=== PATIENT | female | born 1980 | race Two or more races ===

== ENCOUNTER 2024-03-31 23:40 | Emergency (ER) | payer OTHER, SELFPAY ==
[2024-03-31 23:44] VITALS: BP 129/85
[2024-03-31 23:55] VITALS: BP 122/71
[2024-03-31 23:56] VITALS: BMI 25.6
[2024-04-01] VITALS (8 sets, daily range): BP systolic 84–110; BP diastolic 45–73
--- NOTE | 2024-04-01 00:03 | ED.GENMED ---
History of Present Illness
<RAMY Ross - Last Filed: 04/01/24 05:13>
General
Chief Complaint: Abdominal Pain
Source: patient
Exam Limitations: none
Time Seen by Provider: 03/31/24 23:51
Nursing documentation reviewed up to this point in time: agreed with
History of Present Illness
History of Present Illness:
43 year old female presents for evaluation of abdominal pain. Pt endorses mild generalized abdominal cramping that began approximately 2 hours ago while she was at work. She states that since this time the pain has worsened, and is now localized to
her lower abdomen, specifically the LLQ. Pain is currently 7/10 and is worsened by movement. Pt also admits to associated nausea, but denies vomiting. Pt has not taken any medications for her sx. Pt has a history of diverticulitis with
approximately 3 past flares reported, and believes that her current sx are due to a flare. Pt adds that her flares have historically been triggered by food.Her last meal was at approximately 12:00pm on 03/31. Pt had a normal bowel movement this
morning with no blood in the stool, but notes that she tried to have another bowel movement during the onset of her sx and was unable to move her bowels. She was previously followed by GI at [facility] for diverticulitis, but pt notes she has not
been seen in approximately 2 years. No fever, chills, weight loss, fatigue, diarrhea, dysuria, flank pain, or rash reported. LMP 2 months ago per pt.
Past History
<RAMY Ross - Last Filed: 04/01/24 05:13>
Past History
ED Past Medical History: Asthma and Other (Diverticulitis)
ED Past Surgical History: None
Social History
Tobacco: Non-smoker
Alcohol: None
Personal: Single
Living: with family
Employment: Employed
Review of Systems
<RAMY Ross - Last Filed: 04/01/24 05:13>
Review of Systems
Allergies reviewed?: Yes
Constitutional: Reports no symptoms
EENT: Reports no symptoms
Respiratory: Reports no symptoms
Cardiac: Reports no symptoms
ABD/GI: Reports abdominal pain and nausea
: Reports no symptoms
Musculoskeletal: Reports no symptoms
Skin: Reports no symptoms
Neurological: Reports no symptoms
Endocrine: Reports no symptoms
Hematologic/Lymphatic: Reports no symptoms
Psychiatric: Reports no symptoms
Phy Exam
<RAMY Ross - Last Filed: 04/01/24 05:13>
General Physical Exam
General Presentation: mild distress
General age: appears stated age
General Skin: warm
General Habitus: normal
General Mental: alert
General Hydration: appears well hydrated
Cardiovascular Exam
Cardiovascular Exam: regular rate/rhythm and no murmur
Pulmonary Exam
Pulmonary Exam: lungs clear and no respiratory distress
Gastrointestinal Exam
Gastrointestinal Exam: normal bowel sounds and no cva tenderness
Palpation: left upper quadrant: Mild tenderness, left lower quadrant: Moderate tenderness, right upper quadrant: Mild tenderness and right lower quadrant: Moderate tenderness
Neurological Exam
Neurological Exam: alert and oriented x3
Skin Exam
Skin Exam: normal color, warm/dry and no rash
Course
<ST CodyAL - Last Filed: 04/01/24 05:13>
Orders/Labs/Results
Orders:
Orders
04/01/24 00:06
Complete Blood Count/With Diff Urgent
Comprehensive Metabolic Panel Urgent
HCG, Serum Qualitative Screen Urgent
Comment: ADD ON
Lipase Urgent
04/01/24 00:43
Add On- LAB Urgent
Tests Added?: serum qual HCG
CT Abd/pelvis W Iv Cont Urgent
Comment:
Reason For Exam: gne lower abd pain x 1 day-hx dvertic
04/01/24 00:44
0.9% Sodium Chloride 1000 ml [Nss] 1,000 ml IV BOLUS
Ketorolac [Toradol] 30 mg IV NOW STA
Ondansetron Injectable [Zofran] 4 mg IV NOW STA
04/01/24 01:42
Urinalysis Reflex To Culture Urgent
Date Specimen was Collected: 04/01/24
Time Specimen was Collected: 01:02
Urine Microscopic Reflex Cult Urgent
Urine Culture Urgent
SAAD Source: U
Specimen Description:
Date Specimen was Collected: 04/01/24
Time Specimen was Collected: 01:02
04/01/24 02:53
Acetaminophen 1000MG/100Ml [Ofirmev] 1,000 mg in 100 ml IV ONCE
Acetaminophen IV Indication:: ED Narcotic Naive Pt-ONCE
LevoFLOXacin 500 MG/100 ML [Levaquin] 500 mg in 100 ml IV NOW
MetroNIDAZOLE 500 MG/100 ML [Flagyl 500 mg] 100 ml IV NOW
Abnormal Lab Results
04/01/24 04/01/24
00:06 01:42
WBC 14.8 H 10^3/uL
(4.8-10.8)
MCH 31.8 H pg
(27.0-31.0)
Abs Immat Gran (auto) 0.3 H 10^3/uL
(0-0.05)
Absolute Neuts (auto) 12.5 H 10^3/uL
(1.4-6.5)
Absolute Lymphs (auto) 1.1 L 10^3/uL
(1.2-3.4)
Immature Gran % 1.8 H %
(0-0.5)
Neutrophils % 84.4 H %
(42.2-75.2)
Lymphocytes % 7.7 L %
(20.5-51.1)
Urine Ketones 2+ A
(Negative)
Leukocyte Esterase Rfl 1+ A
(Negative)
Urine WBC (Reflex) 40-50 A /HPF
(0-5)
Urine Bacteria (Reflex) Many A
(Negative)
04/01/24 00:06
04/01/24 00:06
Vital Signs
Initial and Last Documented VS:
Initial Vital Signs
Temp Pulse Resp BP Pulse Ox
98.4 F 77 20 129/85 100
03/31/24 23:44 03/31/24 23:44 03/31/24 23:44 03/31/24 23:44 03/31/24 23:44
Last Documented Vital Signs
Temp Pulse Resp BP Pulse Ox
98.0 F 69 18 90/57 96
04/01/24 03:10 04/01/24 03:10 04/01/24 03:10 04/01/24 04:00 04/01/24 04:45
<Ashley Pemberton, DO - Last Filed: 04/01/24 03:31>
Orders/Labs/Results
Orders:
Orders
04/01/24 00:06
Complete Blood Count/With Diff Urgent
Comprehensive Metabolic Panel Urgent
HCG, Serum Qualitative Screen Urgent
Comment: ADD ON
Lipase Urgent
04/01/24 00:43
Add On- LAB Urgent
Tests Added?: serum qual HCG
CT Abd/pelvis W Iv Cont Urgent
Comment:
Reason For Exam: gne lower abd pain x 1 day-hx dvertic
04/01/24 00:44
0.9% Sodium Chloride 1000 ml [Nss] 1,000 ml IV BOLUS
Ketorolac [Toradol] 30 mg IV NOW STA
Ondansetron Injectable [Zofran] 4 mg IV NOW STA
04/01/24 01:42
Urinalysis Reflex To Culture Urgent
Date Specimen was Collected: 04/01/24
Time Specimen was Collected: 01:02
Urine Microscopic Reflex Cult Urgent
Urine Culture Urgent
SAAD Source: U
Specimen Description:
Date Specimen was Collected: 04/01/24
Time Specimen was Collected: 01:02
04/01/24 02:53
Acetaminophen 1000MG/100Ml [Ofirmev] 1,000 mg in 100 ml IV ONCE
Acetaminophen IV Indication:: ED Narcotic Naive Pt-ONCE
LevoFLOXacin 500 MG/100 ML [Levaquin] 500 mg in 100 ml IV NOW
MetroNIDAZOLE 500 MG/100 ML [Flagyl 500 mg] 100 ml IV NOW
Abnormal Lab Results
04/01/24 04/01/24
00:06 01:42
WBC 14.8 H 10^3/uL
(4.8-10.8)
MCH 31.8 H pg
(27.0-31.0)
Abs Immat Gran (auto) 0.3 H 10^3/uL
(0-0.05)
Absolute Neuts (auto) 12.5 H 10^3/uL
(1.4-6.5)
Absolute Lymphs (auto) 1.1 L 10^3/uL
(1.2-3.4)
Immature Gran % 1.8 H %
(0-0.5)
Neutrophils % 84.4 H %
(42.2-75.2)
Lymphocytes % 7.7 L %
(20.5-51.1)
Urine Ketones 2+ A
(Negative)
Leukocyte Esterase Rfl 1+ A
(Negative)
Urine WBC (Reflex) 40-50 A /HPF
(0-5)
Urine Bacteria (Reflex) Many A
(Negative)
04/01/24 00:06
04/01/24 00:06
Vital Signs
Initial and Last Documented VS:
Initial Vital Signs
Temp Pulse Resp BP Pulse Ox
98.4 F 77 20 129/85 100
03/31/24 23:44 03/31/24 23:44 03/31/24 23:44 03/31/24 23:44 03/31/24 23:44
Last Documented Vital Signs
Temp Pulse Resp BP Pulse Ox
98.0 F 69 18 90/57 96
04/01/24 03:10 04/01/24 03:10 04/01/24 03:10 04/01/24 04:00 04/01/24 04:45
<RAMY Ross - Last Filed: 04/01/24 05:13>
MDM/Problems Addressed
Differential Diagnosis Includes:
Diverticulitis, cholecystitis, pancreatitis, appendicitis
<RAMY Ross - Last Filed: 04/01/24 05:13>
*Critical Care Note
Total Time (30-74mins, 75-104mins- exclusive of procedures): Not Applicable
<Ashley Pemberton DO - Last Filed: 04/01/24 03:31>
*Radiology
Radiology exam reviewed: radiology read reviewed
*Pulse Oximetry
Patient hypoxic: no
*Critical Care Note
Total Time (30-74mins, 75-104mins- exclusive of procedures): Not Applicable
<RAMY Ross - Last Filed: 04/01/24 05:13>
Update Note
Update Note:
04/01/2024, 02:22 - CT A/P showing acute sigmoid diverticulitis. No perforation or abscess. Normal appendix. No bowel obstruction. No free air.
ED Attending Note
<RAMY Ross - Last Filed: 04/01/24 05:13>
-
Portions of this chart may have been created with voice recognition software.� Occasional wrong word or��sound alike� substitutions may have occurred due to the inherent limitations of voice recognition software.
<Ashley Pemberton, DO - Last Filed: 04/01/24 03:31>
ED Attending Note
Patient seen and examined by attending physician: Yes
I performed the substantive portion of visit, reviewed & personally made and approve the management plan that is documented in note by myself or GAEL.: Yes
ED Attending Note:
This is a 43-year-old woman who has prior history of diverticulitis with the last episode uncomplicated diverticulitis July 2023 and prior to that April 2023. Successfully treated on both occasions with outpatient course of Levaquin/Flagyl.
Previously followed with GI at [facility]. She presents with generalized lower abdominal pain that began mildly this evening, has gotten progressively worse over the past several hours, no improvement after moving her bowels, no improvement after
urinating. She admits to intermittent chills tonight, unsure if she has been running a fever.
Abdominal pain feels similar to previous episodes of diverticulitis. She denies diarrhea or constipation, denies dysuria and urgency and or hematuria, denies back pain or flank pain.
Last menstrual period 2 months ago, she states her menses have been sporadic and irregular which she attributes to perimenopausal state. She denies risk of .
She has not taken anything for pain.
She takes no medicines on a daily basis.
No prior abdominal surgeries.
She admits to mild nausea tonight but denies vomiting. Appetite has been good.
She has driven herself to the ED.
GENERAL: 43-year-old woman appears her stated age, awake and alert, appears in mild distress related to pain. Moderately soft-spoken. Afebrile.
EYE: pupils equal and round. Anicteric
NECK: Supple, nontender, no meningismus, no significant adenopathy.
ENT: oral mucosa is moist. No rhinorrhea.
CARDIAC: Regular rate and rhythm. no murmur.
LUNGS: Clear breath sounds bilaterally, no acute respiratory distress, no wheezes/rales/rhonchi
ABDOMEN: Soft, nondistended, moderate tenderness left lower quadrant, suprapubic as well as significant tenderness right lower quadrant with mild guarding of right lower quadrant, no rigidity nor rebound, no cvat. normoactive BS.
NEUROLOGICAL: Alert and oriented x3, no focal neuro deficits. Gait is steady.
SKIN: Warm and dry, normal color, skin intact. No rash.
MUSCULOSKELETAL: No C/C/E. peripheral pulses are full and equal b/l. No palpable tenderness.
PSYCH: Normal and appropriate interaction.
Concern for recurrent diverticulitis, other considerations acute appendicitis, ovarian cyst, less likely UTI.
Labs thus far reveal moderately elevated white blood cell count of 14.8. Chemistries are unremarkable. Will add hCG to blood in the lab. Will check urinalysis.
Will plan for CT abdomen pelvis with IV contrast.
04/01/2024 0300 AM
CAT scan shows acute sigmoid diverticulitis without evidence of abscess nor free air. Normal appendix.
Will initiate a course of Levaquin/Flagyl which patient has done quite well with previously.
Moderate improvement in pain after IV Toradol. Will give an IV dose of Tylenol as patient has driven herself to the ED. Small prescription for Vicodin has been provided at discharge.
Recommend she limit her diet to clear liquids over the next 3 days, slowly advance as tolerated.
Discussed importance of follow-up with her GI specialist at [facility] for recheck.
Return precautions discussed.
Discharge Plan
Departure
Patient Disposition: Home (Routine Discharge)
Date of Disposition: 04/01/24
Time of Disposition: 03:24
Patient with high blood pressure during this ER visit?: No
Condition: Good
Discharge Problem:
Acute sigmoid diverticulitis
Instructions: Clear Liquid Diet, Diverticulitis (DC)
Prescriptions:
New
levofloxacin 500 mg tablet
500 mg PO DAILY 9 Days Qty: 9 0RF
metronidazole 500 mg tablet
500 mg PO TID Qty: 30 0RF
hydrocodone-acetaminophen 5-300 mg tablet
1 tab PO Q8H PRN (Reason: Pain) Qty: 8 0RF
Referrals:
Jin Pemberton MD [Family Provider] -
Activity Restrictions/Additional Instructions:
Over the next 3 days, limit your diet to clear liquids only. Thereafter advance as tolerated to soft bland foods.
Follow-up with your credit risk officer for recheck.
Interventions
Interventions:
*Risk Screen - Suicide Last Done: 03/31/24 23:44
*General Assessment Last Done: 03/31/24 23:56
*Neglect/Abuse Screening Last Done: 03/31/24 23:44
ED- Fall Risk Assessment Last Done: 03/31/24 23:56
*ED COVID-19 Vaccine History Last Done: 03/31/24 23:56
WE-Mvcecd-Hfjkhgltad Assessment Last Done: 03/31/24 23:56
Discharge Date and Time
Print Language: TURKISH
[2024-04-01 00:31] LABS: % Basophils 0.3 % (0-2); % Eosinophils 3.3 % (0-6); % Immature Granulocytes 1.8 % (0-0.5); % Lymphocytes 7.7 % (20.5-51.1); % Monocytes 2.5 % (1.7-9.3); % Neutrophils 84.4 % (42.2-75.2); Absolute Eosinophils 0.5 10^3/uL (0-0.7); Absolute Immature Granulocytes 0.3 10^3/uL (0-0.05); Absolute Lymphocytes 1.1 10^3/uL (1.2-3.4); Absolute Monocytes 0.4 10^3/uL (0.1-0.6); Absolute Neutrophils 12.5 10^3/uL (1.4-6.5); Hematocrit 42.9 % (37.0-47.0); Hemoglobin 14.7 g/dL (12.0-16.0); Mean Corp Hgb Conc. 34.3 g/dL (33.0-37.0); Mean Corpuscular Hgb 31.8 pg (27.0-31.0); Mean Corpuscular Volume 92.9 fL (81.0-99.0); Mean Platelet Volume 9.4 fL (7.4-10.4); Nucleated Red Blood Cells % 0 %; Platelet Count 297 10^3/uL (130-400); Red Blood Cell Count 4.62 10^6/uL (4.20-5.40); Red Cell Dist. Width 12.8 % (11.5-14.5); White Blood Cell Count 14.8 10^3/uL (4.8-10.8)
[2024-04-01 00:40] LABS: ALT (SGPT) 14 U/L (0-35); AST (SGOT) 29 U/L (14-36); Albumin 4.7 g/dl (3.5-5.0); Alkaline Phosphatase 70 U/L (38-126); Blood Urea Nitrogen 13 mg/dl (7-17); Calcium 9.3 mg/dl (8.4-10.2); Carbon Dioxide 27 mmol/L (22-30); Chloride 102 mmol/L (98-107); Estimated Creatinine Clearance 88 ml/min; Glucose 97 mg/dl (70-99); Lipase 45 U/L (23-300); Potassium 3.8 mmol/L (3.5-5.1); Sodium 138 mmol/L (135-145); Total Bilirubin 1.2 mg/dl (0.2-1.3); Total Protein 7.5 g/dl (6.3-8.2); eGFR > 60.00
[2024-04-01] MEDS: NSS 1000 IV (00:48)
[2024-04-01] MEDS: TORADOL 30 MG IV (00:49)
[2024-04-01] MEDS: ZOFRAN 4 MG IV (00:50)
[2024-04-01 01:01] LABS: HCG, Serum Qualitative Screen Negative
[2024-04-01 02:01] LABS: Urine Albumin Negative (Neg - Trace); Urine Bilirubin Negative (Negative); Urine Color Yellow; Urine Glucose Negative (Negative); Urine Ketone 2+ (Negative); Urine Leukocyte 1+ (Negative); Urine Nitrite Negative (Negative); Urine Occult Blood Negative (Negative); Urine Urobilinogen Negative (Neg - 1+)
[2024-04-01 02:09] LABS: Urine Character Slightly Cloudy (Clear)
[2024-04-01 02:26] LABS: Urine Bacteria Many (Negative); Urine Mucus Moderate; Urine Squamous Cell >30 /LPF (Few)
[2024-04-01 02:27] LABS: Urine Red Blood Cell 0-2 /HPF (0-2); Urine White Cell 40-50 /HPF (0-5)
[2024-04-01] MEDS: OFIRMEV 100 IV (03:03)
[2024-04-01] MEDS: LEVAQUIN 100 IV (03:05)
[2024-04-01] MEDS: FLAGYL 500 MG 100 IV (03:05)
== END 2024-04-01 06:46 | disposition home or self-care (01) ==
LOC: EMR 23:40
PROVIDERS: EMERGENCY PHYSICIAN Emergency Medicine; FAMILY PHYSICIAN Internal Medicine
DX: K57.32 Diverticulitis of large intestine without perforation or abscess without bleeding (principal)
CPT/HCPCS: 99284; 96365; 96367; 96375 ×3; 96361; 96366; 74177; 80053; 81003; 81015; 83690; 84703; 85025; 87086; Q9967

== ENCOUNTER 2024-04-02 19:14 | Inpatient (IN) | payer OTHER, SELFPAY ==
[2024-04-02] VITALS (7 sets, daily range): BP systolic 102–128; BP diastolic 60–80; BMI 28.0; BMI 26.9
--- NOTE | 2024-04-02 15:11 | ED.GENMED ---
History of Present Illness
<Sharyn Garcia PA-C - Last Filed: 04/02/24 18:36>
General
Chief Complaint: Abdominal Pain
Source: patient
Exam Limitations: none
Time Seen by Provider: 04/02/24 15:09
Nursing documentation reviewed up to this point in time: agreed with
History of Present Illness
History of Present Illness:
Patient is a 43-year-old female presenting to the emergency department for further evaluation of persistent abdominal pain in setting of known diverticulitis. Patient was seen in the emergency department here about 36 hours ago for lower abdominal
pain and associated nausea. Patient was diagnosed with acute sigmoid diverticulitis at that time via CT scan. She was discharged on oral ciprofloxacin/Flagyl. Patient states that she has taken her antibiotic over the past 1 to 2 days and has not
noticed any improvement. Patient states she is experience significant abdominal discomfort that is not resolved with p.o. Vicodin that was prescribed to her upon discharge. Patient states the pain is not necessarily worse than it was but has not
improved.
Patient reports some nausea but has had no episodes of vomiting. Patient denies any fevers, some subjective chills. Patient has been adhering to a clear liquid diet since discharge
Patient has had at least 3 flares of diverticulitis in the past 1 which required IV antibiotics.
She is followed with GI at [facility] in the past.
Past History
<Sharyn Garcia PA-C - Last Filed: 04/02/24 18:36>
Past History
ED Past Medical History: Asthma and Other (Diverticulitis)
ED Past Surgical History: None
Social History
Tobacco: Non-smoker
Alcohol: None
Personal: Single
Living: with family
Employment: Employed
Review of Systems
<Sharyn Garcia PA-C - Last Filed: 04/02/24 18:36>
Review of Systems
Allergies reviewed?: Yes
All Other Systems: ROS reviewed and negative except as documented in HPI and ROS
Phy Exam
<Sharyn Garcia PA-C - Last Filed: 04/02/24 18:36>
Physical Exam
Physical Exam:
Vitals: Patient's vital signs are stable. Afebrile
General: Patient is well appearing, no acute distress. Nontoxic-appearing
Skin: Warm and dry, no rashes or lesions
Head: Normocephalic, atraumatic
Eyes: Sclera nonicteric. EOMs intact. No nystagmus.
Throat: Protecting airway
Neck: Normal ROM, no cervical spine tenderness, no meningismus
Cardiac: Regular rate and rhythm, no murmurs.
Pulm: Normal respiratory effort, no wheezes, rales, rhonchi heard on exam.
Abdomen: Abdomen soft. Mild left lower quadrant abdominal tenderness without rebound tenderness or guarding. No CVA tenderness
Extremities: No evidence of cyanosis or edema. Great distal pulses
Neuro: AAOx3. CN II-XII intact. No focal neurologic deficits.
Psychiatric: Normal affect.
Course
<Sharyn Garcia PA-C - Last Filed: 04/02/24 18:36>
Orders/Labs/Results
Orders:
Orders
04/02/24 16:19
0.9% Sodium Chloride 1000 ml [Nss] 1,000 ml IV BOLUS
Ketorolac [Toradol] 15 mg IV NOW STA
04/02/24 17:27
Morphine Sulfate 4 mg IV NOW STA
04/02/24 17:33
Basic Metabolic Panel Urgent
Complete Blood Count/With Diff Urgent
HCG, Serum Qualitative Screen Urgent
Comment: ADD ON
04/02/24 17:53
Piperacillin/Tazo 3.375 Gram [Zosyn] 3.375 gram in 50 ml IV NOW
04/02/24 18:00
Add On- LAB Urgent
Tests Added?: Serum hcg qual
Abnormal Lab Results
04/02/24
17:33
WBC 13.5 H 10^3/uL
(4.8-10.8)
RBC 3.75 L 10^6/uL
(4.20-5.40)
Hct 35.6 L %
(37.0-47.0)
MCH 32.0 H pg
(27.0-31.0)
Abs Immat Gran (auto) 0.1 H 10^3/uL
(0-0.05)
Absolute Neuts (auto) 11.3 H 10^3/uL
(1.4-6.5)
Neutrophils % 84.1 H %
(42.2-75.2)
Lymphocytes % 9.4 L %
(20.5-51.1)
BUN 6 L mg/dl
(7-17)
Calcium 8.2 L mg/dl
(8.4-10.2)
04/02/24 17:33
04/02/24 17:33
Vital Signs
Initial and Last Documented VS:
Initial Vital Signs
Temp Pulse Resp BP Pulse Ox
98.1 F 80 16 127/80 98
04/02/24 15:02 04/02/24 15:02 04/02/24 15:02 04/02/24 15:02 04/02/24 15:02
Last Documented Vital Signs
Temp Pulse Resp BP Pulse Ox
98.1 F 62 16 120/75 99
04/02/24 15:02 04/02/24 16:43 04/02/24 15:02 04/02/24 16:43 04/02/24 16:43
<Jin Armstrong DO - Last Filed: 04/02/24 16:52>
Orders/Labs/Results
Orders:
Orders
04/02/24 16:19
0.9% Sodium Chloride 1000 ml [Nss] 1,000 ml IV BOLUS
Ketorolac [Toradol] 15 mg IV NOW STA
04/02/24 17:27
Morphine Sulfate 4 mg IV NOW STA
04/02/24 17:33
Basic Metabolic Panel Urgent
Complete Blood Count/With Diff Urgent
HCG, Serum Qualitative Screen Urgent
Comment: ADD ON
04/02/24 17:53
Piperacillin/Tazo 3.375 Gram [Zosyn] 3.375 gram in 50 ml IV NOW
04/02/24 18:00
Add On- LAB Urgent
Tests Added?: Serum hcg qual
Abnormal Lab Results
04/02/24
17:33
WBC 13.5 H 10^3/uL
(4.8-10.8)
RBC 3.75 L 10^6/uL
(4.20-5.40)
Hct 35.6 L %
(37.0-47.0)
MCH 32.0 H pg
(27.0-31.0)
Abs Immat Gran (auto) 0.1 H 10^3/uL
(0-0.05)
Absolute Neuts (auto) 11.3 H 10^3/uL
(1.4-6.5)
Neutrophils % 84.1 H %
(42.2-75.2)
Lymphocytes % 9.4 L %
(20.5-51.1)
BUN 6 L mg/dl
(7-17)
Calcium 8.2 L mg/dl
(8.4-10.2)
04/02/24 17:33
04/02/24 17:33
Vital Signs
Initial and Last Documented VS:
Initial Vital Signs
Temp Pulse Resp BP Pulse Ox
98.1 F 80 16 127/80 98
04/02/24 15:02 04/02/24 15:02 04/02/24 15:02 04/02/24 15:02 04/02/24 15:02
Last Documented Vital Signs
Temp Pulse Resp BP Pulse Ox
98.1 F 62 16 120/75 99
04/02/24 15:02 04/02/24 16:43 04/02/24 15:02 04/02/24 16:43 04/02/24 16:43
<Sharyn Garcia PA-C - Last Filed: 04/02/24 18:36>
MDM/Problems Addressed
Differential Diagnosis Includes:
Not limited to: Diverticulitis, intractable pain, complicated diverticulitis
MDM/Problems Addressed:
43-year-old female presenting with intractable abdominal pain in known setting of acute diverticulitis currently on oral antibiotics. Seen in ED yesterday wound specialist where CT scan showed acute sigmoid diverticulitis and patient was discharged
with p.o. Cipro/Flagyl. Patient presents with persistent pain not controlled with p.o. Vicodin. No fevers or chills. No vomiting. Vital signs stable on arrival, afebrile. Physical exam as above. Patient is nontoxic-appearing. She does have
mild abdominal tenderness in upper abdomen and some moderate tenderness in left lower quadrant. There is no rebound tenderness or guarding. There are no peritoneal signs. Heart regular rate and rhythm. Lungs clear bilaterally. Great distal
pulses. Will give IV fluids, attempt analgesia here. Will closely monitor and reassess
Into reassess patient bilaterally IV Toradol. Patient still reporting discomfort. Will give 4 mg IV morphine.
Given patient has only been on oral antibiotics for 24 hours�would not consider this a treatment failure. Although will admit patient for pain management/IV antibiotics given significant level of discomfort and requiring IV narcotic medication.
Will check basic labs. Will start Zosyn.
Labs reviewed. White count of 13.5 which is mildly decreased from 14.8 yesterday. Otherwise no clinically significant abnormalities. Discussed with hospitalist�patient was accepted to hospitalist service. Patient seen along attending physician.
Chronic conditions affecting care:
Diverticulitis
Acute Exacerbation and/or Progression of Chronic Illness:
Acute diverticulitis
<Sharyn Garcia PA-C - Last Filed: 04/02/24 18:36>
*Pulse Oximetry
Patient hypoxic: no
*EKG
Interpreted by ED Provider?: NA
*Slip Cover Sewer Interpretation
Rate: Slip Cover Sewer- N/A
*Critical Care Note
Total Time (30-74mins, 75-104mins- exclusive of procedures): Not Applicable
<Sharyn Garcia PA-C - Last Filed: 04/02/24 18:36>
Patient Management
Discussion with other providers: Hospitalist
Escalation/DeEscalation of care consider admission/obs:
Admit for pain management
ED Attending Note
<Sharyn Garcia PA-C - Last Filed: 04/02/24 18:36>
-
Portions of this chart may have been created with voice recognition software.� Occasional wrong word or��sound alike� substitutions may have occurred due to the inherent limitations of voice recognition software.
<Jin Armstrong, - Last Filed: 04/02/24 16:52>
ED Attending Note
Patient seen and examined by attending physician: Yes
I performed the substantive portion of visit, reviewed & personally made and approve the management plan that is documented in note by myself or GAEL.: Yes
ED Attending Note:
I agree with Sharyn's note
Patient complaining of continued pain in her lower abdomen despite being on antibiotics for 24 hours. Patient was seen here in the emergency room approximate 24 hours ago and diagnosed with diverticulitis based on CAT scan. She was started on oral
antibiotics, Cipro and Flagyl. She states she does not feel any better. Patient has had diverticulitis in the past and when she has had antibiotics started she typically believes she feels better quickly. She is concerned that the pain continues
and she states the pain is not tolerable even with Vicodin. Patient denies nausea vomiting. No known fever
Abdomen: Mildly tender in the upper abdomen and more moderate tenderness in the lower abdomen, no rebound.
IVF/analgesia here, admit if not feeling better for pain control and iv abx
Discharge Plan
Departure
Patient Disposition: Admit
Date of Disposition: 04/02/24
Time of Disposition: 17:53
Presentation/result/management discussed w/ accepting MD/DO: Hospitalist
Discharge Problem:
Acute diverticulitis, Intractable abdominal pain
Prescriptions:
No Action
levofloxacin 500 mg tablet
500 mg PO DAILY 9 Days Qty: 9 0RF
metronidazole 500 mg tablet
500 mg PO TID Qty: 30 0RF
hydrocodone-acetaminophen 5-300 mg tablet
1 tab PO Q8H PRN (Reason: Pain) Qty: 8 0RF
Advair
1 puff inhalation R DAILY
Referrals:
NONE,* [Active] -
Interventions
Interventions:
*Risk Screen - Suicide Last Done: 04/02/24 16:43
*General Assessment Last Done: 04/02/24 16:43
*Neglect/Abuse Screening Last Done: 04/02/24 16:43
*ED COVID-19 Vaccine History Last Done: 04/02/24 16:43
MZ-Efahgg-Upqekzjnwc Assessment Last Done: 04/02/24 16:40
Discharge Date and Time
Print Language: OCCITAN
[2024-04-02] MEDS: TORADOL 15 MG IV (16:39)
[2024-04-02] MEDS: NSS 1000 IV (16:39)
[2024-04-02] MEDS: MORPHINE SULFATE 4 MG IV (17:34)
[2024-04-02 17:51] LABS: % Basophils 0.2 % (0-2); % Eosinophils 1.3 % (0-6); % Immature Granulocytes 0.5 % (0-0.5); % Lymphocytes 9.4 % (20.5-51.1); % Monocytes 4.5 % (1.7-9.3); % Neutrophils 84.1 % (42.2-75.2); Absolute Eosinophils 0.2 10^3/uL (0-0.7); Absolute Immature Granulocytes 0.1 10^3/uL (0-0.05); Absolute Lymphocytes 1.3 10^3/uL (1.2-3.4); Absolute Monocytes 0.6 10^3/uL (0.1-0.6); Absolute Neutrophils 11.3 10^3/uL (1.4-6.5); Hematocrit 35.6 % (37.0-47.0); Mean Corp Hgb Conc. 33.7 g/dL (33.0-37.0); Mean Corpuscular Volume 94.9 fL (81.0-99.0); Mean Platelet Volume 9.5 fL (7.4-10.4); Nucleated Red Blood Cells % 0 %; Platelet Count 219 10^3/uL (130-400); Red Blood Cell Count 3.75 10^6/uL (4.20-5.40); Red Cell Dist. Width 12.9 % (11.5-14.5); White Blood Cell Count 13.5 10^3/uL (4.8-10.8)
[2024-04-02 18:14] LABS: Blood Urea Nitrogen 6 mg/dl (7-17); Calcium 8.2 mg/dl (8.4-10.2); Carbon Dioxide 22 mmol/L (22-30); Chloride 106 mmol/L (98-107); Estimated Creatinine Clearance 112 ml/min; Glucose 73 mg/dl (70-99); Potassium 3.6 mmol/L (3.5-5.1); Sodium 137 mmol/L (135-145); eGFR > 60.00
[2024-04-02 18:17] LABS: HCG, Serum Qualitative Screen Negative
[2024-04-02] MEDS: ZOSYN 50 IV (18:30)
--- NOTE | 2024-04-02 18:41 | HPS.HSE ---
Addendum entered and electronically signed by Amaya Jalloh MD 04/02/24 18:55:
I saw and examined the patient.
The PUBLIC HEALTH VETERINARIAN or PA's note was reviewed and I agree with the note.
Comment:
43 years old female presented with abdominal pain. She was recently diagnosed with diverticulitis but felt oral antibiotic did not help. She denied fever or vomiting. She reported that she had diverticulitis 2 times before this admission.
GEN: No acute distress, conversant, pleasant
HEENT: anicteric, extraocular movements intact, clear oropharynx without exudates
CV: normal S1/S2, no murmur, rub or gallop
RESP: clear to auscultation bilaterally
GI: soft, not distended, tender to palpation.
EXT: warm, well perfused, no edema bilaterally
NEURO: AAOx3, non-focal
Psych: calm
Assessment and plan:
# Acute diverticulitis
Recurrent issue. Status post colonoscopy 3 years ago with positive finding of polyps/diverticulitis per patient. She had it done at [place]
Admit the patient to the hospital
Start the patient on IV antibiotic
IV pain medication, IV antiemetic
Tylenol for fever
Repeat CAT scan to rule out worsening diverticulitis/abscess formation
Consult surgery and GI doctor. Patient would like to continue with doctors locally
# Asthma, no acute exacerbation
No wheezes on exam.
-Continue Advair
# Leukocytosis, will do blood culture.
#DVT prophylaxis
Total time spent to see the patient, examine the patient on the floor, review data and lab results, discuss treatment plan with patient, ER doctor, nursing staff around 75 minutes
Original Note:
Family Physician
-
Family Physician: iJn Pemberton
Chief Complaint
-
Abdominal Pain
History of Present Illness
Patient is a 43 y/o female with a PMH of asthma and diverticulitis who presents to the ED for worsening abdominal pain. She was recently seen Saturday 03/31 for LLQ abdominal pain and nausea. She was diagnosed with acute sigmoid diverticulitis and
discharged on PO levofloxacin and Flagyl. She states she took two days worth of antibiotics. Even with the antibiotics and Vicodin for her pain seems to be worsening. The pain radiates to her back and she describes it as feeling like 'labor pains.'
She has also experienced nausea and chills be denies vomiting or fever. She reports poor oral intake since Monday. She reports three episode of diverticulitis in the past with most recent being in July 2023.
Medical History
Past Medical History
Past Medical History: Reports Other
Additional Past Medical History:
Asthma
Past Surgical History: Reports Other
Additional Past Surgical History:
[place] Teeth
Social History
Tobacco: Vaping (Occasionally)
Alcohol: None
Family History
Family History: Not pertinent
Allergies / Home Medications
Allergies reflects when Allergies were last updated in [facility].
Home Medications with original date entered in [facility]
Allergy/Medication List:
Allergies
Allergy/AdvReac Type Severity Reaction Status Date / Time
No Known Allergies Allergy Verified 03/31/24 23:43
Home Medications
hydrocodone 5 mg-acetaminophen 300 mg tablet 1 tab PO Q8H PRN Pain #8 tabs 04/01/24
levofloxacin 500 mg tablet 500 mg PO DAILY 9 days #9 tabs 04/01/24
metronidazole 500 mg tablet 500 mg PO TID #30 tabs 04/01/24
Advair 1 puff inhalation R DAILY 04/02/24
Review of Systems
-
A 12 point ROS was completed and negative except as noted: Yes
Constitutional: Reports Chills
Respiratory: Denies Cough or Trouble Breathing
Cardiac: Denies Chest Pain or Palpitations
Abdomen/GI: Reports See HPI
Physical Exam
Vital Signs
Vital Signs
Temp Pulse Resp BP Pulse Ox
98.1 F 62 16 120/75 99
04/02/24 15:02 04/02/24 16:43 04/02/24 15:02 04/02/24 16:43 04/02/24 16:43
Physical Exam
General: Conversant and Pain
HEENT: Anicteric and Moist mucous membranes
Respiratory: Clear and Non Labored Respirations
Cardiac: S1/S2 and Regular Rhythm
GI: Soft and Tender (Significant tenderness in LLQ)
Genito-urinary: Clear Urine
Musculoskeletal: No Clubbing, No Cyanosis and No Edema
Skin: Warm and Dry
Neuro: Awake, Alert, Oriented and Nonfocal/grossly intact
Psych: Calm
Laboratory Results
-
04/02/24 17:33
04/02/24 17:33
CT Abd/Pelvis April 01: Acute sigmoid diverticulitis without complication. No intramural abscess, free air, or perisigmoid fluid collection.
Data Reviewed
-
CT Scan: Report Reviewed by me
Lab Data: Labs Reviewed by me
Old Records: Reviewed
Impression/Plan
-
Acute Diverticulitis, failed outpatient treatment
-Recheck CT scan due to significant tenderness on exam
-Consult Colorectal Surgery and GI
-Transition antibiotics to cefepime and vancomycin
-Continue NPO/IVFs
-Continue pain control
Asthma, no acute exacerbation
-Continue Advair
DVT proph: Lovenox
Code Status: Full Code
[2024-04-02] MEDS: ZOFRAN 4 MG IV (19:15)
[2024-04-02] MEDS: OMNIPAQUE 50 ML PO (19:15)
--- NOTE | 2024-04-02 20:39 | PHA.VAN.IN ---
Assessment
- Assessment
Renal Function: Appears similar to baseline
Concomitant Antimicrobials: CEFEPIME
- Previous Dosing Experience
Previous Regimen: NONE
AUC Dosing Plan
- Dosing Variables
Dosing Weight (kg): 68.9
Dosing CrCl (ml/min): 100
Vd coefficient (L/kg): 0.7
- Empiric Dosing
Initial / Loading Dose: 1750MG
Maintenance Regimen: 1GM IV Q12H
Estimated AUC (mcg*h/mL): 495
Estimated Peak (mcg*h/mL): 31.9
Estimated Trough (mcg/ml): 12.2
Estimated Half Life (H): 7.9
Pharmacokinetics Vancomycin I
- -
Patient Age: 43
Patient Sex: Female
Vancomycin Day #: 1
Indication: Gi / Intra-Abdominal
Requesting Provider: LORIN
Height / Weight:
Height 5 ft 3 in
Actual Weight 68.946 kg
Pertinent Past Medical History: RECURRENT DIVERTICULITIS
- Vital Signs / Lab Results
Temp Pulse Resp BP Pulse Ox
97.7 F 58 14 102/63 96
04/02/24 20:31 04/02/24 20:31 04/02/24 20:31 04/02/24 20:31 04/02/24 20:31
Lab Results - Hematology
04/02/24
17:33
WBC 13.5 H
Lab Results - Chemistry
04/02/24
17:33
BUN 6 L
Creatinine 0.6
Estimated Creat Clear 112
[2024-04-02] MEDS: ADVAIR HFA 115/21 MCG INHALER 2 PUFF INH (20:41)
[2024-04-02] MEDS: DILAUDID 0.25 MG IV (21:20)
[2024-04-02] MEDS: STERILE WATER FOR INJECTION 10 ML IV (22:07)
[2024-04-02] MEDS: MAXIPIME 2000 MG IV (22:08)
[2024-04-02] MEDS: D5/0.45%NSS with KCL 10 MEQ 1000 IV (22:10)
[2024-04-02] MEDS: VANCOCIN 535 MG IV (22:44)
[2024-04-03 00:03] VITALS: BP 101/67
--- NOTE | 2024-04-03 00:10 | PTCARENOTE ---
2100 patient oriented to room and floor routines. Inst flight communications officer cuello, call cuello within reach. Reviewed POC and medications with patient, patient verb understanding.
[2024-04-03] MEDS: DILAUDID 0.25 MG IV ×2 (04:42→10:19)
[2024-04-03] MEDS: D5/0.45%NSS with KCL 10 MEQ 1000 IV ×3 (04:57→20:46)
[2024-04-03] MEDS: MAXIPIME 2000 MG IV ×3 (05:17→21:00)
[2024-04-03] MEDS: STERILE WATER FOR INJECTION 10 ML IV ×3 (05:25→21:00)
[2024-04-03] MEDS: ADVAIR HFA 115/21 MCG INHALER 2 PUFF INH ×2 (07:38→19:36)
[2024-04-03 08:15] LABS: Hematocrit 33.4 % (37.0-47.0); Hemoglobin 11.3 g/dL (12.0-16.0); Mean Corp Hgb Conc. 33.8 g/dL (33.0-37.0); Mean Corpuscular Hgb 32.2 pg (27.0-31.0); Mean Corpuscular Volume 95.2 fL (81.0-99.0); Mean Platelet Volume 9.8 fL (7.4-10.4); Platelet Count 200 10^3/uL (130-400); Red Blood Cell Count 3.51 10^6/uL (4.20-5.40); Red Cell Dist. Width 12.8 % (11.5-14.5); White Blood Cell Count 8.7 10^3/uL (4.8-10.8)
[2024-04-03 08:21] VITALS: BP 102/65
--- NOTE | 2024-04-03 08:30 | PHA.VAN.FU ---
Vancomycin Assessment / Plan
- Assessment
Renal Function: Stable
WBC's are: WNL
In the past 24 hrs, patient has been: Afebrile
Concomitant Antimicrobials: cefepime, metrondiazole
- Dosing Plan
Continue: Vanc 1000mg Q12H
- Monitoring Plan
No level(s) ordered at this time: consider levels in next few days
- Follow Up
Pharmacy will continue to follow.
Vancomycin Follow UP
- -
Patient Age: 43
Patient Sex: Female
Vancomycin Day #: 2
Indication: Gi / Intra-Abdominal
Requesting Provider: Alphonso Burt
Pertinent Antimicrobial Allergies:
NKDA
Height / Weight:
Height 5 ft 3 in
Actual Weight 68.946 kg
- Vital Signs / Lab Results
Temp Pulse Resp BP Pulse Ox
98.2 F 60 18 102/65 96
04/03/24 08:21 04/03/24 08:21 04/03/24 08:21 04/03/24 08:21 04/03/24 08:21
Lab Results - Hematology
04/02/24 04/03/24
17:33 07:38
WBC 13.5 H 8.7
Lab Results - Chemistry
04/02/24
17:33
BUN 6 L
Creatinine 0.6
Estimated Creat Clear 112
--- NOTE | 2024-04-03 08:47 | W.PN.HOSP.TC ---
Today's Communication/Plan
-
c/w IV Abx
c/w IVF
Assessment / Plan
Assessment / Plan
43 years old female presented with abdominal pain. She was recently diagnosed with diverticulitis but felt oral antibiotic did not help. She denied fever or vomiting. She reported that she had diverticulitis 2 times before this admission.
GEN: No acute distress, conversant, pleasant
HEENT: anicteric, extraocular movements intact, clear oropharynx without exudates
CV: normal S1/S2, no murmur, rub or gallop
RESP: clear to auscultation bilaterally
GI: soft, not distended, tender to palpation.
EXT: warm, well perfused, no edema bilaterally
NEURO: AAOx3, non-focal
Psych: calm
Assessment and plan:
# Acute diverticulitis
Good clinical improvement with less abd pain, WBC normal now
No fevers
c/w Aggressive IV Abx regimen for now
IV pain medication, IV antiemetic
Tylenol for fever
Repeat CAT scan no worsening diverticulitis/abscess formation
Consulted surgery and GI doctor. Patient would like to continue with doctors locally, appreciate input.
# Asthma, no acute exacerbation
No wheezes on exam.
# Leukocytosis, resolved
f/w blood culture
#DVT prophylaxis
Total time spent to see the patient, examine the patient on the floor, review data and lab results, discuss treatment plan with patient, nursing staff around 55 minutes
Anticipated Discharge: 24 - 48 hours
Subjective/Interval History
-
Date of Service: April 03, 2024
She feels better, less abd pain
Objective Data
-
Labs:
Laboratory Results
04/03/24
07:38
WBC 8.7
Hgb 11.3 L
Hct 33.4 L
Plt Count 200
Sodium Pending
Potassium Pending
Chloride Pending
Carbon Dioxide Pending
BUN Pending
Creatinine Pending
Glucose Pending
Calcium Pending
Vital Signs:
Vital Signs
Temp Pulse Resp BP Pulse Ox
98.2 F 60 18 102/65 96
04/03/24 08:21 04/03/24 08:21 04/03/24 08:21 04/03/24 08:21 04/03/24 08:21
I&O
04/02/24 04/03/24 04/04/24
06:59 06:59 06:59
Intake Total 0 / 0
Balance 0 / 0
[2024-04-03 08:53] LABS: Blood Urea Nitrogen 4 mg/dl (7-17); Calcium 8.2 mg/dl (8.4-10.2); Carbon Dioxide 22 mmol/L (22-30); Chloride 108 mmol/L (98-107); Estimated Creatinine Clearance 110 ml/min; Glucose 126 mg/dl (70-99); Potassium 3.5 mmol/L (3.5-5.1); Sodium 138 mmol/L (135-145); eGFR > 60.00
[2024-04-03] MEDS: VANCOCIN 200 IV ×2 (10:26→22:23)
[2024-04-03] MEDS: ZOFRAN 4 MG IV (12:10)
--- NOTE | 2024-04-03 12:45 | CON.CRS ---
Consultation
-
Date/Time Consultation Requested: 04/02/2024, 20:21
Date/Time Consultation Performed: 04/02/2024, 09:00
Requesting Provider: Gay Burt DO
Performing Provider: Jin Godwin MD
Reason for Consultation: diverticulitis
Medical History
-
Chief Complaint: abdominal pain
History of Present Illness:
43-year-old female presents to [place] [facility] last night complaining of abdominal pain. The patient states that her pain started about 4 days ago and she came to [place] ER on 04/01/2024. She was found to have sigmoid colon diverticulitis and was
discharged with p.o. antibiotics. She states that her pain got worse despite the antibiotics so she came back to the ER. Currently she has a little bit of nausea but no vomiting. She had some chills at home but no fever. She has no issues with
urination. Her pain is mostly localized in the suprapubic and left lower quadrant area. She has had 3 prior attacks of diverticulitis. She denies previous abdominal surgery. She had colonoscopy 3 years ago and had polyps. The scope was
performed at [place] and was done by Dr. Hastings. The report is not available for review. She has no family history of colon or rectal cancer.
In the ER her WBC is 13.5 and 8.7 today. She has remained afebrile. CT of the abdomen and pelvis shows acute sigmoid diverticulitis similar in appearance compared to the CT abdomen pelvis from 04/01/2024. No evidence for perforation or
pericolonic abscess. We have been consulted for further surgical recommendation.
Past Medical History
Past Medical History: Asthma
Past Surgical History: Other ([place] Teeth)
Social History
Tobacco: Vaping
Family History
Family History: Reviewed & Not Pertinent
Allergies / Home Medications
Allergy/AdvReac Type Severity Reaction Status Date / Time
No Known Allergies Allergy Verified 03/31/24 23:43
�Medication �Instructions �Recorded �Confirmed �Type
hydrocodone 5 mg-acetaminophen 300 1 tab PO Q8H PRN Pain #8 tabs 04/01/24 04/02/24 Rx
mg tablet
Advair 1 puff inhalation R DAILY 04/02/24 04/02/24 History
Lung/Breathing Issues
levofloxacin 500 mg tablet 500 mg PO DAILY Infection 04/03/24 04/02/24 History
metronidazole 500 mg tablet 500 mg PO TID Infection 04/03/24 04/02/24 History
Review of Systems
-
History Source: Patient
Abdomen/GI: Abdominal Pain and Nausea
A 10 point review of systems was completed, and was negative except as per HPI.
Physical Exam
Vital Signs
Temp 98.2 F 04/03/24 08:21
Pulse 60 04/03/24 08:21
Resp Rate 18 04/03/24 08:21
Blood pressure 102/65 04/03/24 08:21
SaO2 96 04/03/24 08:21
04/02/24 04/03/24 04/04/24
06:59 06:59 06:59
Actual Weight 68.946 kg
Body Mass Index (BMI) 26.9
Lab Results / Allergies
04/03/24 07:38
04/03/24 07:38
WBC 8.7 10^3/uL (4.8-10.8) 04/03/24 07:38
Hgb 11.3 g/dL (12.0-16.0) L 04/03/24 07:38
Hct 33.4 % (37.0-47.0) L 04/03/24 07:38
Plt Count 200 10^3/uL (130-400) 04/03/24 07:38
Abs Immat Gran (auto) 0.1 10^3/uL (0-0.05) H 04/02/24 17:33
Neutrophils % 84.1 % (42.2-75.2) H 04/02/24 17:33
Allergy/AdvReac Type Severity Reaction Status Date / Time
No Known Allergies Allergy Verified 03/31/24 23:43
Physical Exam
General: Well Developed and Well Nourished
GI: Soft, Non Distended and Tender (suprapubic and LLQ - mild)
Skin: Warm and Dry
Neuro: AO x 3
Data Reviewed
-
CT Scan: Image Personally Visualized and interpreted, Report Reviewed by me and Discussed with Patient
Labs: Labs Reviewed by me, Discussed with Physician and Discussed with Patient
Old Records: Reviewed
Assessment / Plan
-
Assessment: 43-year-old female with fourth attack of diverticulitis presents to [facility] due to worsening abdominal pain despite p.o. antibiotics as an outpatient and found to have uncomplicated sigmoid diverticulitis on CT
Plan:
-Agree with IV antibiotics. Will add Flagyl for anaerobic coverage
-Continue with IV fluids
-Advance diet to clears
-No indication for emergent surgery at this time. If she worsens she will require a colectomy with colostomy creation. For now we will treat with medical measures.
--- NOTE | 2024-04-03 13:54 | CON.GI ---
Addendum entered and electronically signed by Tristan Bah MD 04/04/24 14:16:
correction - 3 rd episode of diverticulitis
Addendum entered and electronically signed by Tristan Bah MD 04/03/24 17:15:
I saw and examined the patient.
The PETROLE[employer] SAMPLER's note was reviewed and I agree with the note.
Acute uncomplicated sigmoid diverticulitis-first episode. Last colonoscopy 3 years back�colon polyps
plan
Clear liquid diet
Continue IV antibiotics
Minimize opioids
follow-up with GI as outpatient-colonoscopy in 8-12 weeks
Original Note:
Consultation
-
Date/Time Consultation Requested: 04/02/242020
Date/Time Consultation Performed: 04/03/24 1340
Requesting Provider: JOSS Kincaid
Performing Provider: Dr. Bah/COLLINS Melendrez
Reason for Consultation: diverticulitis
Medical History
Chief Complaint / HPI
Chief Complaint: abd pain
History of Present Illness:
43-year-old female with past medical history of asthma, diverticulitis, colon polyps who was in the emergency room on 03/31/2024 and diagnosed with diverticulitis and discharged on Levaquin, Flagyl and hydrocodone presents back to the emergency room
on 04/02/2024 with persistence of symptoms. Asked to evaluate for the same. The patient states that on Monday she developed left lower quadrant pain that she describes as dull, constant, nonradiating, movement made worse, pain medication made
better. This was associated with constipation. She came to the emergency room where she was diagnosed with diverticulitis. She was sent home with Levaquin, Flagyl and hydrocodone. The patient states that she started on a clear liquid diet. She
states that the pain medication improve the pain some but she had persistent pain so she came back to the emergency room. She was n.p.o. initially and she did started clear liquids this morning. She still has the pain however it is improved
slightly now that she is on IV pain medication. She is passing flatus. Her last colonoscopy was approximately 3 years ago at [place] with a Dr. Silverman. She states that she had colon polyps at that time. She cannot recall the interval which
she supposed to repeat this. She states that somewhere between 3 and 5 years. She denies any fevers, chills, vomiting, melena, hematochezia, dysphagia or dyne aphasia. She denies any early satiety or unintentional weight loss. She did have some
mild nausea. Currently WBC is 8.7 down from 13.5, hemoglobin is 11.3 down from 12.0, hematocrit is 33.4, platelets are 200, sodium 138, potassium 3.5, chloride 108, CO2 22, BUN 4, creatinine 0.6, glucose 126, prior LFTs from ER on 04/01/2024 were
within normal limits, CT of the abdomen and pelvis with IV and oral contrast dated 04/02/2024 shows acute sigmoid diverticulitis. Similar to appearance compared to prior CT on 04/01/2024. No evidence for perforation, pericolonic abscess. There is
cholelithiasis.
Past Medical History
Past Medical History: Asthma and Other (Diverticulosis, diverticulitis, colon polyp)
Past Surgical History: None
Social History
Tobacco: Non-Smoker
Alcohol: Other (Rare)
Drug: None
Family History
Family History: Other (No family history gastrointestinal malignancy or IBD)
Allergies / Home Medications
Allergy/AdvReac Type Severity Reaction Status Date / Time
No Known Allergies Allergy Verified 03/31/24 23:43
�Medication �Instructions �Recorded
hydrocodone 5 mg-acetaminophen 300 1 tab PO Q8H PRN Pain #8 tabs 04/01/24
mg tablet
Advair 1 puff inhalation R DAILY 04/02/24
Lung/Breathing Issues
levofloxacin 500 mg tablet 500 mg PO DAILY Infection 04/03/24
metronidazole 500 mg tablet 500 mg PO TID Infection 04/03/24
Review of Systems
-
All other systems: A 12 pt ROS was Negative except as stated above in HPI
Vital Signs
Temp Pulse Resp BP Pulse Ox
98.2 F 60 18 102/65 96
04/03/24 08:21 04/03/24 08:21 04/03/24 08:21 04/03/24 08:21 04/03/24 08:21
Physical Exam
Exam
General: No Apparent Distress
HEENT: Anicteric
Respiratory: Clear
Cardiac: Regular Rhythm
GI: Soft, Non Distended, Normal Bowel Sounds and Tender (Left lower quadrant tenderness)
Musculoskeletal: No Edema
Skin: Warm and Dry
Neuro: AO x 3
Psych: Calm
Results
WBC 8.7 10^3/uL (4.8-10.8) 04/03/24 07:38
Hgb 11.3 g/dL (12.0-16.0) L 04/03/24 07:38
Hct 33.4 % (37.0-47.0) L 04/03/24 07:38
MCV 95.2 fL (81.0-99.0) 04/03/24 07:38
Plt Count 200 10^3/uL (130-400) 04/03/24 07:38
Absolute Neuts (auto) 11.3 10^3/uL (1.4-6.5) H 04/02/24 17:33
Sodium 138 mmol/L (135-145) 04/03/24 07:38
Potassium 3.5 mmol/L (3.5-5.1) 04/03/24 07:38
Chloride 108 mmol/L (98-107) H 04/03/24 07:38
Carbon Dioxide 22 mmol/L (22-30) 04/03/24 07:38
BUN 4 mg/dl (7-17) L 04/03/24 07:38
Creatinine 0.6 mg/dL (0.6-1.0) 04/03/24 07:38
Calcium 8.2 mg/dl (8.4-10.2) L 04/03/24 07:38
Diagnostic Image Results:
CT abdomen and pelvis with oral and IV contrast 04/02/2024:
1. Acute sigmoid diverticulitis. Similar appearance compared to the CT abdomen/pelvis from 04/01/2024. No evidence for perforation or pericolonic abscess.
2. Cholelithiasis.
Electronically signed by Alyssa Stoner, 04/02/2024 10:[address] of the abdomen and pelvis with IV contrast 04/01/2024:
IMPRESSION:
Acute sigmoid diverticulitis without complication. No intramural abscess, free air, or perisigmoid fluid collection.
Chronic/incidental findings as detailed in the body of the report.
A preliminary interpretation was provided by [facility] teleradiology service. The above report agrees with the initial interpretation.
Electronically signed by Jin Chowdary DO, 04/01/2024 8:46 AM
[facility] Dose Report: Up-to-date CT equipment and radiation dose reduction techniques were employed. CTDIvol: 8.2 mGy. DLP: 410 mGy-cm.
Dictated By: Jin Chowdary DO
Dictated Date & Time: 04/01/24827
Prior GI Procedures:
EGD: Never
Colonoscopy: Approximately 3 years ago (Dr. Andra Jarrett) per patient 'colon polyps'. Does not recall exact interval for repeat colonoscopy 3-5 years patient believes.
Assessment / Plan
-
43-year-old female with past medical history of asthma, diverticulitis, colon polyps who was in the emergency room on 03/31/2024 and diagnosed with diverticulitis and discharged on Levaquin, Flagyl and hydrocodone presents back to the emergency room
on 04/02/2024 with persistence of symptoms. Asked to evaluate for the same. The patient states that on Monday she developed left lower quadrant pain that she describes as dull, constant, nonradiating, movement made worse, pain medication made
better. This was associated with constipation. She came to the emergency room where she was diagnosed with diverticulitis. She was sent home with Levaquin, Flagyl and hydrocodone. The patient states that she started on a clear liquid diet. She
states that the pain medication improve the pain some but she had persistent pain so she came back to the emergency room.
Impression:
Diverticulitis
--> Refractory to outpatient treatment
Plan:
-Clear liquid diet
-Continue cefepime and Flagyl
-Discussed trying to minimize narcotics to avoid constipation, no bowel movement since Monday
-Patient would like to try antispasmodics, will try Bentyl 10 mg p.o. 4 times daily as needed
-CBC, BMP in a.m.
-Will need repeat colonoscopy in approximately 8 weeks, patient unsure who she would like to follow-up with at present time. Was given our business card in case she would like to follow-up as an outpatient.
-Further recommendations to be forthcoming
Data Reviewed
-
CT Scan: Report Reviewed by me
Old Records: Reviewed
-
-
Thank you for consultation and allowing me to participate in the patient's care. Please call the production quality manager GI physician during the after hours with any questions or concerns.
[2024-04-03] MEDS: FLAGYL 500 MG 100 IV ×2 (14:48→21:00)
--- NOTE | 2024-04-03 15:06 | CM ---
Patient seen bedside, initial assessment completed. Patient resides with her children and mother in an apartment, no steps to enter. Patient denies use of DME, no VN or SNF history. Patient confirms PCP Jin Pemberton, pharmacy [facility],
confirms prescription coverage through her insurance. When asked about food, housing, transportation insecurities, patient reports she is not interested at this time, maybe later on. CM will continue to follow for all discharge planning needs.
Plan; home no needs likely.
[2024-04-03 15:30] VITALS: BP 112/70
[2024-04-03] MEDS: BENTYL 10 MG PO (17:24)
[2024-04-03] MEDS: BenGay-Like 1 APPLIC TOPICAL (18:11)
[2024-04-03] MEDS: ROXICODONE 5 MG PO (20:46)
[2024-04-03] MEDS: BenGay-Like TOPICAL (22:15)
[2024-04-03 23:30] VITALS: BP 96/58
[2024-04-04] MEDS: D5/0.45%NSS with KCL 10 MEQ 1000 IV (04:19)
[2024-04-04] MEDS: STERILE WATER FOR INJECTION 10 ML IV ×3 (05:14→21:03)
[2024-04-04] MEDS: MAXIPIME 2000 MG IV ×3 (05:19→21:02)
[2024-04-04] MEDS: FLAGYL 500 MG 100 IV ×3 (05:20→21:03)
[2024-04-04 07:22] VITALS: BP 114/64
[2024-04-04] MEDS: ADVAIR HFA 115/21 MCG INHALER 2 PUFF INH ×2 (07:37→20:19)
--- NOTE | 2024-04-04 08:02 | VATNOTE ---
Pt notes swelling without discomfort or redness to her R forearm where an IV had infiltrated previously. Heat applied and arm elevated
--- NOTE | 2024-04-04 08:06 | PHA.VAN.FU ---
Vancomycin Assessment / Plan
- Assessment
Renal Function: Stable
WBC's are: Trending Down
In the past 24 hrs, patient has been: Afebrile
Concomitant Antimicrobials: cefepime, metronidazole
- Dosing Plan
Continue: Vanc 1000mg Q12H
Noted administration times were changed from standard admin times for level monitoring - order adjusted back to 0600,1800 - first dose now then 1800
- Monitoring Plan
No level(s) ordered at this time: consider levels in next few days
- Follow Up
Pharmacy will continue to follow.
Vancomycin Follow UP
- -
Patient Age: 43
Patient Sex: Female
Vancomycin Day #: 3
Indication: Gi / Intra-Abdominal
Requesting Provider: Alphonso Burt
Pertinent Antimicrobial Allergies:
NKDA
Height / Weight:
Height 5 ft 3 in
Actual Weight 68.946 kg
Pertinent Past Medical History: BMI ~27
- Vital Signs / Lab Results
Temp Pulse Resp BP Pulse Ox
98.7 F 62 16 96/58 99
04/03/24 23:30 04/04/24 07:41 04/04/24 07:41 04/03/24 23:30 04/04/24 07:41
Lab Results - Hematology
04/02/24 04/03/24
17:33 07:38
WBC 13.5 H 8.7
Lab Results - Chemistry
04/02/24 04/03/24
17:33 07:38
BUN 6 L 4 L
Creatinine 0.6 0.6
Estimated Creat Clear 112 110
Microbiology Results
04/02/24 19:24 Blood Culture - Preliminary
Blood/Venous No Growth in 24 hours- Final report to follow
--- NOTE | 2024-04-04 08:52 | W.PN.CRS1 ---
Today's Communication / Plan
-
ok for low residue
if tolerating, ok for d/c this PM
Assessment/Plan
-
43-year-old female with PMH of asthma and recurrent diverticulitis (2 prior episodes) who presents with 4 days of abdominal pain; initially seen in the [facility] on 04/01, WBC 14.8, CT showing acute uncomplicated diverticulitis and was discharged
on p.o. antibiotics, but re-presented due to worsening abdominal pain; repeat WBC 13.[address] with stable uncomplicated diverticulitis; admitted for IV antibiotics
AFVSS
No labs today
� No acute surgical intervention; would recommend nonoperative measures to decrease risk of open surgery and possible ostomy; monitor for improvement; explained risks of nonoperative measures, including clinical worsening and need for emergent
surgery
� Okay for low residue; back down to n.p.o. if worsening abdominal pain or N/V
� Continue IV cefepime and flagyl; recommend oral regimen for 10-14 days total, such as levaquin/flagyl
� DVT PPx
� OOB/IS
� Appreciate hospitalist
Dispo- if tolerating low residue without worse pain/n/v, ok for d/c this afternoon from CRS perspective; f/u with me in 2-4 weeks
Subjective Data
Subjective Data
Date of Service: April 04, 2024
No overnight events.
Pain improved, still feels a little discomfort in the lower to left abdomen.
Denies nausea/vomiting. Tolerating clears.
+flatus +BMs (x 1 since yesterday, loose) +voiding
Pt is OOB.
Objective Data
-
Vital Signs
Temp Pulse Resp BP Pulse Ox
98.1 F 62 16 114/64 99
04/04/24 07:22 04/04/24 07:41 04/04/24 07:41 04/04/24 07:22 04/04/24 07:41
Intake & Output
04/03/24 04/04/24 04/05/24
06:59 06:59 06:59
Intake Total 0 / 0 3555 / 3555
Balance 0 / 0 3555 / 3555
Intake:
Oral fluids 0 / 0 1200 / 1200
IV fluids (Total) 1455 / 1455
IV piggybacks 900 / 900
Other:
Number of approximated MODERATE 2 2
amounts of urine
Lab Results
04/03/24 07:38
04/03/24 07:38
Physical Exam
-
General: No Acute Distress and AOx3
HEENT: Grossly Normal
Abdomen: Soft, Non Distended, Tender (Minimally tender in the left lower quadrant), No Guarding and No Rebound
Skin: Warm and Dry
--- NOTE | 2024-04-04 09:07 | W.PN.HOSP.TC ---
Today's Communication/Plan
-
likely dc in am
Assessment / Plan
Assessment / Plan
43 years old female presented with abdominal pain. She was recently diagnosed with diverticulitis but felt oral antibiotic did not help. She denied fever or vomiting. She reported that she had diverticulitis 2 times before this admission.
GEN: No acute distress, conversant, pleasant
HEENT: anicteric, extraocular movements intact, clear oropharynx without exudates
CV: normal S1/S2, Loud S2 ,? murmur, no rub or gallop
RESP: clear to auscultation bilaterally
GI: soft, not distended, not tender to palpation.
EXT: warm, well perfused, no edema bilaterally
NEURO: AAOx3, non-focal
Psych: calm
Assessment and plan:
# Acute diverticulitis
Good clinical improvement with less abd pain, WBC normal now. She feels hungry, tolerated liquids well. Abdomen is soft non tender.
No fevers
c/w Aggressive IV Abx for another 24 hours
IV pain medication, IV antiemetic
Tylenol for fever
Repeat CAT scan no worsening diverticulitis/abscess formation
Consulted surgery and GI doctor. Patient would like to continue with doctors locally, appreciate input.
# Asthma, no acute exacerbation
No wheezes on exam.
# Pectus excavatum
# Loud S2, possible murmur? I could not tell
Will do Echo
EKG , ? Q wave in anterior leads
She deneis heart disease history or chest pain, reports good exercise tolerance
# Leukocytosis, resolved
Negative blood culture
#DVT prophylaxis
Total time spent to see the patient, examine the patient on the floor, review data and lab results, discuss treatment plan with patient, nursing staff around 55 minutes
Anticipated Discharge: Within 24 hours
Subjective/Interval History
-
Date of Service: April 04, 2024
Doing better
less abd pain
Mild diarrhea
no fevers
feels hungry
Objective Data
-
Vital Signs:
Vital Signs
Temp Pulse Resp BP Pulse Ox
98.1 F 62 16 114/64 99
04/04/24 07:22 04/04/24 07:41 04/04/24 07:41 04/04/24 07:22 04/04/24 07:41
I&O
04/03/24 04/04/24 04/05/24
06:59 06:59 06:59
Intake Total 0 / 0 3555 / 3555
Balance 0 / 0 3555 / 3555
[2024-04-04] MEDS: BenGay-Like 1 APPLIC TOPICAL (09:27)
[2024-04-04] MEDS: VANCOCIN 200 IV ×2 (09:28→17:40)
[2024-04-04] MEDS: BENTYL 10 MG PO ×2 (09:28→15:34)
[2024-04-04] MEDS: ROXICODONE 5 MG PO (09:28)
--- NOTE | 2024-04-04 10:57 | CM ---
Patient seen bedside, reports no needs to CM at this time. Per chart, patient likely to discharge tomorrow. CM will continue to follow for all discharge planning needs.
Plan; home no needs when medically stable.
[2024-04-04] MEDS: D5/0.45%NSS with KCL 10 MEQ IV (11:53)
--- NOTE | 2024-04-04 14:10 | W.PN.GI.CBS2 ---
Today's Communication / Plan
-
low residual diet
Assessment / Plan
-
43-year-old female with past medical history of asthma, diverticulitis, colon polyps who was in the emergency room on 03/31/2024 and diagnosed with diverticulitis and discharged on Levaquin, Flagyl and hydrocodone presents back to the emergency room
on 04/02/2024 with persistence of symptoms. Asked to evaluate for the same. The patient states that on Monday she developed left lower quadrant pain that she describes as dull, constant, nonradiating, movement made worse, pain medication made
better. This was associated with constipation. She came to the emergency room where she was diagnosed with diverticulitis. She was sent home with Levaquin, Flagyl and hydrocodone. The patient states that she started on a clear liquid diet. She
states that the pain medication improve the pain some but she had persistent pain so she came back to the emergency room.
Impression:
Acute uncomplicated sigmoid diverticulitis-recurrent. Third episode. Last colonoscopy 3 years back. Clinically feeling better today
plan
Colorectal recommendation reviewed
Continue IV antibiotic
Low residual diet as tolerated
Okay to use Bentyl as needed for abdominal bloating/cramps
Recommend colonoscopy in 8 to 12 weeks as outpatient. Patient has not decided whether to follow-up at or [facility] in the future.
No further GI recommendation. Will sign off
Total Time Spent with Patient (in minutes): 35
Subjective
Subjective
Date of Service: April 04, 2024
Feeling better. Mild abdominal discomfort. Denies any fever/nausea/vomiting
Objective
Data Reviewed
Laboratory Data:
Laboratory Results
04/03/24 07:38
04/03/24 07:38
Vital Signs and I&O:
Vital Signs
Temp Pulse Resp BP Pulse Ox
98.1 F 62 16 114/64 99
04/04/24 07:22 04/04/24 07:41 04/04/24 07:41 04/04/24 07:22 04/04/24 07:41
I&O
04/03/24 04/04/24 04/05/24
06:59 06:59 06:59
Intake Total 0 / 0 3555 / 3555
Balance 0 / 0 3555 / 3555
Physical Exam
Physical Exam
GI: Soft, Non Distended and Tender (Mild tenderness left lower quadrant)
[2024-04-04] MEDS: BenGay-Like TOPICAL ×3 (15:11→22:08)
[2024-04-04 15:25] VITALS: BP 108/74
[2024-04-04] MEDS: FLUSH (NSS) 2 FLUSH IV (15:30)
[2024-04-04] MEDS: DILAUDID 0.25 MG IV (21:02)
[2024-04-04] MEDS: ZOFRAN 4 MG IV (21:18)
[2024-04-04] MEDS: MYLICON 80 MG PO (22:10)
[2024-04-04 23:48] VITALS: BP 116/68
[2024-04-05] MEDS: MAXIPIME 2000 MG IV (05:22)
[2024-04-05] MEDS: FLAGYL 500 MG 100 IV (05:23)
[2024-04-05] MEDS: STERILE WATER FOR INJECTION 10 ML IV (05:23)
[2024-04-05] MEDS: VANCOCIN 200 IV (05:30)
[2024-04-05] MEDS: ADVAIR HFA 115/21 MCG INHALER 2 PUFF INH (07:24)
[2024-04-05 07:48] VITALS: BP 101/63
[2024-04-05] MEDS: BenGay-Like TOPICAL (09:01)
--- NOTE | 2024-04-05 09:02 | W.DCSUMMARY ---
Discharge Summary
Discharge Data
Date of Admission: 04/02/24
Date of Discharge: 04/05/24
-
Pending Results: No
Hospital Course
43 years old female presented with abdominal pain. Patient was diagnosed with acute sigmoid diverticulitis. She had leukocytosis and abdominal discomfort. Patient was started on intravenous antibiotics. She had bowel rest with supportive care
and intravenous fluid. She was followed by colorectal surgery and gastroenterology doctors. Patient started to improve with resolution of leukocytosis and abdominal discomfort. Diet was advanced slowly. Patient had history of diverticulitis in
the past. She was advised to repeat colonoscopy after recovery for further recommendations. Patient was noted to have loud S2 with faint murmur. Electrocardiogram showed sinus rhythm with nonspecific changes. Echocardiogram showed normal left
ventricular ejection fraction of 60 to 65% with normal wall motion and no significant valvular disease except trace tricuspid regurgitation with trace mitral regurgitation. Patient had history of asthma. She was vaping. Patient was advised to
avoid vaping and tobacco exposure. She verbalized understanding. Patient was advised to follow-up with her primary care doctor for further monitoring in the future. Patient denied chest pain or shortness of breath. She remained hemodynamically
stable and was discharged in stable condition. Patient reported history of C. difficile colitis in the past. She was given prophylactic oral vancomycin while on oral antibiotic treatment in the outpatient setting.
Physical examination
GEN: No acute distress, conversant, pleasant
HEENT: anicteric, extraocular movements intact, clear oropharynx without exudates
CV: normal S1/S2, no rub or gallop
RESP: clear to auscultation bilaterally
GI: soft, not distended, not tender to palpation.
EXT: warm, well perfused, no edema bilaterally
NEURO: AAOx3, non-focal
Psych: calm, pleasant.
Total discharge time spent to see the patient, examine the patient on the floor, review data and lab results, discuss discharge plan with patient, nursing staff around 65 minutes
Discharge Plan
-
Patient Disposition: Home (Routine Discharge)
Discharge Diagnosis/Procedures: Acute sigmoid diverticulitis.
He was seen by gastroenterology doctor and colorectal surgery. You are given intravenous antibiotics. You had bowel rest and intravenous fluid. You improved slowly. Continue low residue diet for another 5-7 days.
You were noticed to have changes on electrocardiogram and possible heart murmur. You had echocardiogram that showed normal left ventricular ejection fraction with no significant valvular disease.
Avoid vaping
Avoid high-fiber diet for 1 to 2 weeks to allow colon to heal
You are discharged on oral Augmentin with a prophylactic oral vancomycin to avoid C. difficile relapse. Potential side effects of Augmentin include gastroenterology upset/diarrhea.
You are given tramadol for severe pain only. Tramadol can cause drowsiness/sedation. Avoid operating machinery or driving a car while taking it. Use Tylenol/ibuprofen for mild to moderate pain.
Diet: Low Residue
Referrals:
Jin Pemberton MD [Family Provider] - in one to two weeks
Tristan Bah MD [Active] - in one month
Jin Godwin MD [Active] - in one month
Prescriptions:
New
dicyclomine 10 mg Capsule
10 mg PO QIDPRN PRN (Reason: spasm) Qty: 20 0RF
amoxicillin-pot clavulanate 875-125 mg tablet
1 tab PO BID Qty: 12 0RF
vancomycin 125 mg capsule
125 mg PO TID Qty: 18 0RF
tramadol 50 mg tablet
50 mg PO BID PRN (Reason: severe pain) Qty: 10 0RF
acetaminophen [Tylenol Extra Strength] 500 mg tablet
1,000 mg PO Q6H PRN (Reason: mild to moderate pain) Qty: 20 0RF
ibuprofen 200 mg tablet
400 mg PO Q8H PRN (Reason: mild to moderate pain) Qty: 10 0RF
Continued
Advair
1 puff inhalation R DAILY
Discontinued
hydrocodone-acetaminophen 5-300 mg tablet
1 tab PO Q8H PRN (Reason: Pain) Qty: 8 0RF
metronidazole 500 mg tablet
500 mg PO TID
levofloxacin 500 mg tablet
500 mg PO DAILY
Discharge Orders:
Discharge Patient (As Directed); Ordered 04/05/24
Ordered By: Amaya Jalloh
Discharge Date and Time
Print Language: CENTRAL AFRICAN
--- NOTE | 2024-04-05 11:02 | W.PN.CRS1 ---
Today's Communication / Plan
-
low residue x1 week
abx for 10-14d
f/u in 2-4 weeks
Assessment/Plan
-
43-year-old female with PMH of asthma and recurrent diverticulitis (2 prior episodes) who presents with 4 days of abdominal pain; initially seen in the [place] ED on 04/01, WBC 14.8, CT showing acute uncomplicated diverticulitis and was discharged
on p.o. antibiotics, but re-presented due to worsening abdominal pain; repeat WBC 13.[address] with stable uncomplicated diverticulitis; admitted for IV antibiotics
AFVSS
No labs today
� No acute surgical intervention; cont non-op measures
� Okay for low residue; cont x1 week post-discharge
� Continue IV cefepime and flagyl; recommend oral regimen for 10-14 days total, such as levaquin/flagyl
� DVT PPx
� OOB/IS
� Appreciate hospitalist
Dispo- ok for d/c from CRS perspective; f/u with me in 2-4 weeks
Subjective Data
Subjective Data
Date of Service: April 05, 2024
No overnight events.
Pain significantly improved
Denies nausea/vomiting. Tolerating diet.
+flatus +BMs +voiding
Pt is OOB.
Objective Data
-
Vital Signs
Temp Pulse Resp BP Pulse Ox
97.5 F 60 18 101/63 98
04/05/24 07:48 04/05/24 07:48 04/05/24 07:48 04/05/24 07:48 04/05/24 07:48
Intake & Output
04/04/24 04/05/24 04/06/24
06:59 06:59 06:59
Intake Total 3555 / 3555 2380 / 2380
Balance 3555 / 3555 2380 / 2380
Intake:
Oral fluids 1200 / 1200 1380 / 1380
IV fluids (Total) 1455 / 1455 300 / 300
IV piggybacks 900 / 900 700 / 700
Other:
Number of approximated MODERATE 2 2
amounts of urine
Lab Results
04/03/24 07:38
04/03/24 07:38
Physical Exam
-
General: No Acute Distress and AOx3
HEENT: Grossly Normal
Abdomen: Soft, Non Distended, Non Tender, No Guarding and No Rebound
Skin: Warm and Dry
== END 2024-04-05 11:16 | disposition home or self-care (01) | DRG 392 ==
LOC: 4 EAST ACU 19:14
PROVIDERS: Physician Assistant; Physician Assistant Medical; ADMITTING PHYSICIAN Internal Medicine; CONSULT PHYSICIAN Internal Medicine Gastroenterology; EMERGENCY PHYSICIAN Emergency Medicine; FAMILY PHYSICIAN Internal Medicine; OTHER PHYSICIAN Surgery
DX: K57.32 Diverticulitis of large intestine without perforation or abscess without bleeding (principal); J45.909 Unspecified asthma, uncomplicated; K59.00 Constipation, unspecified; K80.20 Calculus of gallbladder without cholecystitis without obstruction; D72.829 Elevated white blood cell count, unspecified; R01.1 Cardiac murmur, unspecified; Z86.010 Personal history of colon polyps; Z86.19 Personal history of other infectious and parasitic diseases; Q67.6 Pectus excavatum
CPT/HCPCS: 74177; 80048; 84703; 85025; 85027; 87040; 93005; 93306; 94640; 96365; 96375; 99285; J3480; Q9967